=== PATIENT | female | born 1980 | race Caucasian/White ===

== ENCOUNTER 2017-01-18 09:49 | Outpatient (CLI) | payer BC ==
[~2017-01-18] VITALS: Ht 160 cm; Wt 77.3 kg
[2017-01-18] VITALS (7 sets, daily range): BP systolic 110–122; BP diastolic 77–92; PULSE 74–90; TEMP 97.6
[2017-01-18 15:12] LABS: CEREBROSPINAL TUBE #4; CSF APPEARANCE CLEAR; CSF COLOR COLORLESS
== END 2017-01-18 13:00 | disposition home or self-care (01) ==
LOC: COL.RAD 09:49
PROVIDERS: Psychiatry & Neurology Neurology
DX: G43.709 Chronic migraine without aura, not intractable, without status migrainosus (principal); H47.10 Unspecified papilledema

== ENCOUNTER → 2017-01-18 | Outpatient (CLI) | payer BC ==
[2005-08-10 07:03] VITALS: TEMP 98
[~2017-01-18] MED LIST: DILANTIN; FOLIC ACID; KEPPRA750 MG PO; MOTRIN 800800 MG/TAB PO; MULTI VITAMINS1 TAB PO; PERCOCET 5/321 UDTAB PO; PRENATAL VITAMI1 TA5 PO
== END ==
LOC: ZCOL.LAB 15:11
DX: Z01.89 Encounter for other specified special examinations (principal)

== ENCOUNTER → 2017-05-08 | Outpatient (CLI) | payer BC | LOC: MC.RAD 07:24 | DX: N63.20 Unspecified lump in the left breast, unspecified quadrant (principal); N60.01 Solitary cyst of right breast ==